=== PATIENT | female | born 1965 | race Caucasian/White ===

== ENCOUNTER 2019-08-08 11:01 | Emergency (ER) | payer OTHER ==
[2019-08-08] MEDS ORDERED: Ketorolac 30 MG/ML SDV IVPUSH ONE (13:00)
[2019-08-08] MEDS ORDERED: diphenhydrAMINE 50 MG/ML SDV IVPUSH ONE (13:00)
[2019-08-08] MEDS ORDERED: Sodium Chloride 0.9% 1,000 ML IV ONE (13:00)
[2019-08-08] MEDS ORDERED: Sodium Chloride 0.9% 10 ML Syringe FLUSH PRN (13:00)
[2019-08-08 13:41] LABS: CHLORIDE,CL 100 mmol/L (98-107); SODIUM,NA 138 mmol/L (136-145)
[2019-08-08] MEDS ORDERED: Butorphanol 2 MG/ML SDV IVPUSH ONE (14:13)
--- NOTE | 2019-08-08 14:54 | EDM.PDOC ---
Scribed by Teri Gray 08/08/19 [id number] for Ayana Lee NP ED HPI GENERAL MEDICAL PROBLEM - General Chief Complaint: Headache Stated Complaint: HEADACHE Time Seen by Provider: 08/08/19 12:45 Source of Information: Reports: Patient, RN, RN Notes Reviewed History Limitations: Reports: No Limitations - History of Present Illness INITIAL COMMENTS - FREE TEXT/NARRATIVE: Patient presents to ER with complaint of headache since , cannot get rid of it. She states she had a cortisone shot to her lower back 3 weeks ago. She rates her headache as a 7/10. Denies history of migraine headaches. She has right shoulder pain and seen a chiropractor on Saturday. She has had nausea and chills. No vomiting, fever, chest pain or shortness of breath. No sensitivity to light or sound. She has been using Tylenol and Tylenol with Codeine with no relief. She is tired, weak, cough and no exposure to COVID and no travel. Onset Date: 08/06/19 Duration: Constant Location: Reports: Head Quality: Reports: Ache Severity: Moderate Improves with: Reports: None Worsens with: Reports: None Associated Symptoms: Reports: No Other Symptoms Head Pain Score (Numeric/FACES): 6 - Related Data Allergies Allergy/AdvReac Type Severity Reaction Status Date / Time No Known Allergies Allergy Verified 08/08/19 12:31 Home Meds: Home Meds . [No Known Home Meds] 08/08/19 [History] ED ROS GENERAL - Review of Systems Review Of Systems: Comprehensive ROS is negative, except as noted in HPI. - Physical Exam Exam: See Below Exam Limited By: No Limitations General Appearance: Alert, Mild Distress Eye Exam: Bilateral Eye: PERRL (4--brisk) Ears: Normal External Exam, Normal Canal, Hearing Grossly Normal, Normal TMs Nose: Normal Inspection, Normal Mucosa, No Blood Throat/Mouth: Normal Inspection, Normal Lips, Normal Teeth, Normal Gums, Normal Oropharynx, Normal Voice, No Airway Compromise Head Exam: Atraumatic, Normocephalic Neck: Normal Inspection, Supple, Non-Tender, Full Range of Motion Respiratory/Chest: No Respiratory Distress, Lungs Clear, Normal Breath Sounds, No Accessory Muscle Use, Chest Non-Tender Cardiovascular: Normal Peripheral Pulses, Regular Rate, Rhythm, No Edema, No Gallop, No JVD, No Murmur, No Rub GI/Abdominal: Normal Bowel Sounds, Soft, Non-Tender, No Organomegaly, No Distention, No Abnormal Bruit, No Mass (Female) Exam: Deferred Rectal (Female) Exam: Deferred Neuro Exam (Abbreviated): Alert, Oriented, CN II-XII Intact, Normal Cognition, Normal Gait, Normal Reflexes, No Motor/Sensory Deficits Back Exam: Normal Inspection, Full Range of Motion, NT Extremities: No: Other (right shoulder pain with decreased range of motion) Psychiatric: Normal Affect, Normal Mood Skin Exam: Warm, Dry, Intact, Normal Color, No Rash Course - Vital Signs Last Recorded V/S: Last Vital Signs Temp 98.5 F 08/08/19 12:31 Pulse 81 08/08/19 12:31 Resp 16 08/08/19 12:31 BP 126/59 L 08/08/19 12:31 Pulse Ox 99 08/08/19 12:31 - Orders/Labs/Meds Orders: Active Orders 24 hr Category Date Time Status Peripheral IV Care [RC] . DIRECTED Care 08/08/19 13:00 Active Head wo Cont [CT] Stat Exams 08/08/19 12:59 Taken Sodium Chloride 0.9% [Saline Flush] Med 08/08/19 13:00 Active 10 ml FLUSH ASDIRECTED PRN Peripheral IV Insertion Adult [OM.PC] Stat Oth 08/08/19 12:59 Ordered Medication Orders Sodium Chloride (Saline Flush) 10 ml FLUSH ASDIRECTED PRN PRN Reason: Keep Vein Open Last Admin: 08/08/19 13:15 Dose: 10 ml Labs: Laboratory Tests 08/08/19 08/08/19 Range/Units 13:16 13:16 WBC 5.5 (5.0-10.0) 10^3/uL RBC 4.96 (4.2-5.4) 10^6/uL Hgb 13.7 (12.0-16.0) g/dL Hct 41.6 (37.0-47.0) % MCV 83.9 (80-100) fL MCH 27.6 (27.0-34.0) pg MCHC 32.9 L (33.0-35.0) g/dL Plt Count 168 (150-450) 10^3/uL Neut % (Auto) 65.8 (42.2-75.2) % Lymph % (Auto) 28.4 (20.5-50.1) % Marin % (Auto) 4.7 (2-8) % Eos % (Auto) 0.9 L (1.0-3.0) % Baso % (Auto) 0.2 (0.0-1.0) % Sodium 138 (136-145) mmol/L Potassium 4.0 (3.5-5.1) mmol/L Chloride 100 (98-107) mmol/L Carbon Dioxide 31 (21-32) mmol/L Anion Gap 11.0 (7-13) mEq/L BUN 13 (7-18) mg/dL Creatinine 0.80 (0.55-1.02) mg/dL Est Cr Clr Drug Dosing 68.05 mL/min Estimated GFR (MDRD) > 60 BUN/Creatinine Ratio 16.2 (No establ ref range) Glucose 104 H (74-99) mg/dL Calcium 8.6 (8.5-10.1) mg/dL Total Bilirubin 0.5 (0.2-1.0) mg/dL AST 44 H (15-37) U/L ALT 112 H (14-59) U/L Alkaline Phosphatase 68 (46-116) U/L Total Protein 7.1 (6.4-8.2) g/dL Albumin 3.9 (3.4-5.0) g/dL Globulin 3.2 Albumin/Globulin Ratio 1.2 Meds: Medications Generic Name Dose Route Start Last Admin Trade Name Freq PRN Reason Stop Dose Admin Sodium Chloride 10 ml 08/08/19 13:00 08/08/19 13:15 Saline Flush FLUSH 10 ml ASDIRECTED PRN Administration Keep Vein Open Discontinued Medications Generic Name Dose Route Start Last Admin Trade Name Freq PRN Reason Stop Dose Admin Butorphanol Tartrate 2 mg 08/08/19 14:13 08/08/19 14:22 Stadol IVPUSH 08/08/19 14:14 2 mg ONETIME ONE Administration Diphenhydramine HCl 25 mg 08/08/19 13:00 08/08/19 13:19 Benadryl IVPUSH 08/08/19 13:01 25 mg ONETIME ONE Administration Sodium Chloride 1,000 mls @ 999 mls/hr 08/08/19 13:00 08/08/19 13:18 Normal Saline IV 08/08/19 14:00 999 mls/hr .BOLUS ONE Administration Ketorolac Tromethamine 30 mg 08/08/19 13:00 08/08/19 13:22 Toradol IVPUSH 08/08/19 13:01 30 mg ONETIME ONE Administration - Radiology Interpretation Free Text/Narrative:: Head CT wo contrast: FINDINGS: Brain: No hemorrhage. Unremarkable white matter for the patient's age. No mass effect. No evolving territorial infarct. Ventricles: No ventriculomegaly. Bones/joints: Unremarkable. No acute fracture. Sinuses: Visualized sinuses are unremarkable. No fluid levels. Mastoid air cells: Visualized mastoid air cells are well aerated. Soft tissues: Unremarkable. IMPRESSION: No acute intracranial abnormality seen. Thank you for allowing us to participate in the care of your patient. Dictated and Authenticated by: Anne Willis MD 08/08/2019 2:01 PM Central Time ([place] & [place]) See rad report Departure - Departure Time of Disposition: 14:52 Disposition: Home, Self-Care 01 Condition: Fair Clinical Impression: Tension-type headache - Discharge Information *PRESCRIPTION DRUG MONITORING PROGRAM REVIEWED*: No *COPY OF PRESCRIPTION DRUG MONITORING REPORT IN PATIENT GALINA: No Instructions: General Headache Without Cause, [id number] Forms: ED Department Discharge Additional Instructions: Drink plenty of water Rest in a dark room today Follow up with your primary care facility if no improvement Return to the ER with any worsening of symptoms Sepsis Event Note - Evaluation Sepsis Screening Result: No Definite Risk - Focused Exam Vital Signs: Vital Signs Temp Pulse Resp BP Pulse Ox 08/08/19 12:31 98.5 F 81 16 126/59 L 99 Date Exam was Performed: 08/08/19 Time Exam was Performed: 14:52 - My Orders Last 24 Hours: My Active Orders 08/08/19 12:59 Head wo Cont [CT] Stat Peripheral IV Insertion Adult [OM.PC] Stat 08/08/19 13:00 Peripheral IV Care [RC] . DIRECTED Sodium Chloride 0.9% [Saline Flush] 10 ml FLUSH ASDIRECTED PRN - Assessment/Plan Last 24 Hours: My Active Orders 08/08/19 12:59 Head wo Cont [CT] Stat Peripheral IV Insertion Adult [OM.PC] Stat 08/08/19 13:00 Peripheral IV Care [RC] . DIRECTED Sodium Chloride 0.9% [Saline Flush] 10 ml FLUSH ASDIRECTED PRN I have read and agree with the documentation that has been completed regarding this visit. By signing this record, I attest that the documentation was completed in my physical presence and is an accurate record of the encounter.
== END 2019-08-08 15:01 | disposition home or self-care (01) ==
LOC: DL.ED 11:01
DX: G44.209 Tension-type headache, unspecified, not intractable (principal); M25.511 Pain in right shoulder
CPT/HCPCS: 36415; 70450; 80053; 85025; 96361; 96374; 96375; 99284; J0595; J1200; J1885; J7030

== ENCOUNTER 2020-01-10 08:51 | Emergency (ER) | payer OTHER ==
--- NOTE | 2020-01-10 09:21 | EDM.PDOC ---
ED HPI GENERAL MEDICAL PROBLEM - General Chief Complaint: Eye Problems Stated Complaint: left eye pain Time Seen by Provider: 01/10/20 09:21 Source of Information: Reports: Patient, RN, RN Notes Reviewed History Limitations: Reports: No Limitations - History of Present Illness INITIAL COMMENTS - FREE TEXT/NARRATIVE: Patient presents to ER with complaint of left eye pain. Patient states on Saturday she used a new contact and wore it through the night Saturday. Began having discomfort on Saturday. Tried a new contact and pain began to get worse. Patient has not been wearing the contacts since yesterday, admits to blurred vision, 5/10 pain, erythema, swelling. Patient denies fever or chills. Onset: Gradual left eye Pain Score (Numeric/FACES): 5 - Related Data Allergies Allergy/AdvReac Type Severity Reaction Status Date / Time No Known Allergies Allergy Verified 01/10/20 09:16 Home Meds: Home Meds . [No Known Home Meds] 08/08/19 [History] Past Medical History - Past Health History Medical/Surgical History: Denies Medical/Surgical History Social & Family History - Family History Family Medical History: Noncontributory - Tobacco Use Smoking Status *Q: Never Smoker Second Hand Smoke Exposure: No - Caffeine Use Caffeine Use: Reports: Coffee - Recreational Drug Use Recreational Drug Use: No ED ROS GENERAL - Review of Systems Review Of Systems: Comprehensive ROS is negative, except as noted in HPI. ED EXAM GENERAL W FULL EYE - Physical Exam Exam: See Below Exam Limited By: No Limitations General Appearance: Alert, WD/WN, No Apparent Distress Eye Exam: Right Eye: Normal Inspection, Left Eye: Conjunctival Injection, Bilateral Eye: EOMI Eyelids: Left: Edema, Erythema, Lid Everted for Exam Conjunctiva & Sclera: Left: Conjunctival Edema, Injected Cornea Exam: Left: Normal Appearance Extraocular Movements: Bilateral: Intact Pupillary Size: Bilateral: 2 mm Pupillary Reaction: Bilateral: Brisk Ears: Normal External Exam Nose: Normal Inspection Throat/Mouth: Normal Inspection, Normal Voice, No Airway Compromise Head: Atraumatic, Normocephalic Neck: Normal Inspection, Supple, Non-Tender, Full Range of Motion Respiratory/Chest: No Respiratory Distress, Lungs Clear, Normal Breath Sounds, No Accessory Muscle Use, Chest Non-Tender Cardiovascular: Normal Peripheral Pulses, Regular Rate, Rhythm, No Edema, No Gallop, No JVD, No Murmur, No Rub GI/Abdominal: Normal Bowel Sounds, Soft, Non-Tender, No Organomegaly, No Distention, No Abnormal Bruit, No Mass (Female) Exam: Deferred Rectal (Female) Exam: Deferred Back Exam: Normal Inspection, Full Range of Motion, NT Extremities: Normal Inspection, Normal Range of Motion, Non-Tender, Normal Capillary Refill, No Pedal Edema Neurological: Alert, Oriented, CN II-XII Intact, Normal Cognition, Normal Gait, Normal Reflexes, No Motor/Sensory Deficits Psychiatric: Normal Affect, Normal Mood Skin Exam: Warm, Dry, Intact, Normal Color, No Rash Lymphatic: No Adenopathy Course - Vital Signs Last Recorded V/S: Last Vital Signs Temp 98.8 F 01/10/20 09:04 Pulse 63 01/10/20 09:04 Resp 20 01/10/20 09:04 BP 126/77 01/10/20 09:04 Pulse Ox 99 01/10/20 09:04 - Orders/Labs/Meds Meds: Medications Discontinued Medications Generic Name Dose Route Start Last Admin Trade Name Mary PRN Reason Stop Dose Admin Fluorescein Sodium 1 mg 01/10/20 09:27 01/10/20 09:50 Ful-Abril EYEBOTH 01/10/20 09:28 1 mg ONETIME ONE Administration Tetracaine HCl 1 ml 01/10/20 09:27 01/10/20 09:50 Tetracaine 0.5% Steri-Unit Elham EYEBOTH 01/10/20 09:28 1 ml ASDIRECTED ONE Administration Departure - Departure Time of Disposition: 10:04 Disposition: Home, Self-Care 01 Condition: Fair Clinical Impression: Conjunctivitis Qualifiers: Conjunctivitis type: acute Acute conjunctivitis type: unspecified Laterality: left Qualified Code(s): H10.32 - Unspecified acute conjunctivitis, left eye - Discharge Information *PRESCRIPTION DRUG MONITORING PROGRAM REVIEWED*: No *COPY OF PRESCRIPTION DRUG MONITORING REPORT IN PATIENT GALINA: No Instructions: Viral Conjunctivitis, Adult, How to Use Eye Drops and Eye Ointments Forms: ED Department Discharge Additional Instructions: Rx: TobraDex Follow-up with optometry tomorrow if no improvement No contacts, no make-up until fully healed Sepsis Event Note (ED) - Evaluation Sepsis Screening Result: No Definite Risk - Focused Exam Vital Signs: Vital Signs Temp Pulse Resp BP Pulse Ox 01/10/20 09:04 98.8 F 63 20 126/77 99
[2020-01-10] MEDS ORDERED: Tetracaine HCl/PF 0.5% 4 ML Bottle EYEBOTH ONE (09:27)
[2020-01-10] MEDS ORDERED: Fluorescein 1 MG Ophth Strip EYEBOTH ONE (09:27)
== END 2020-01-10 10:02 | disposition home or self-care (01) ==
LOC: DL.ED 08:51
DX: H10.32 Unspecified acute conjunctivitis, left eye (principal)
CPT/HCPCS: 99282; 99283